=== PATIENT | male | born 1990 | race Caucasian/White ===

== ENCOUNTER 2025-05-30 09:38 | Inpatient (IN) | payer MEDICAID ==
[~2025-05-30] VITALS: Ht 190.5 cm; Wt 143.0 kg
--- NOTE | 2025-05-30 09:56 | ED.PDOC ---
GI ASSESSMENT HPI Comments 34 y/o M, presents to the ED for CC of abdominal pain. Patient states he has been experiencing diffuse abdominal pain with associated nausea, vomiting, and diarrhea sudden onset, today (05/30/25). Patient reports, to have had [id number] of emesis since symptoms began. Patient endorses, taking Pepto Bismol with no relief of symptoms. Patient denies constipation, melena, fever, chills, or body- aches. No other symptoms or modifying factors are present at this time. Chief Complaint: Abdominal Pain Time Seen by MD: 09:50 Reviewed Notes: Nurses Notes, Medications, Allergies Allergies: Coded Allergies: NO KNOWN ALLERGIES (Unverified , 05/30/25) Information Source: Patient Mode of Arrival: Ambulatory Timing: Hours, Days Duration: Since onset Prehospital treatment: None Vomitus: Watery Stool: Watery Recent: None Recent Hx of: None Pain Location: Diffuse Modifying Factors: Nothing Associated sign and symptoms: Nausea, Vomiting, Diarrhea, Abdominal Pain Past Medical History PAST MEDICAL HISTORY: Denies Surgical History: Denies all surgeries Family History Family History: Unknown Social History Smoker: Non-Smoker Alcohol: Denies ETOH Use Drugs: Denies Drug Use Lives In: Home Constitutional: denies: chills, diaphoresis, fatigue, fever, malaise, sweats, weakness, others EENTM: denies: blurred vision, double vision, ear bleeding, ear discharge, ear drainage, ear pain, ear ringing, eye pain, eye redness, hearing loss, mouth pain, mouth swelling, nasal discharge, nose bleeding, nose congestion, nose pain, photophobia, tearing, throat pain, throat swelling, voice changes, others Respiratory: denies: cough, hemoptysis, orthopnea, SOB at rest, shortness of breath, SOB with excertion, stridor, wheezing, others Cardiovascular: denies: chest pain, dizzy spells, diaphoresis, Dyspnea on exertion, edema, irregular heart beat, left arm pain, lightheadedness, palpitations, PND, syncope, others Gastrointestinal: reports: abdominal pain, diarrhea, nausea, vomiting; denies: abdomen distended, blood streaked bowels, constipated, dysphagia, difficulty swallowing, hematemesis, melena, poor appetite, poor fluid intake, rectal bleeding, rectal pain, others Genitourinary: denies: burning, dysuria, flank pain, frequency, hematuria, incontinence, penile discharge, penile sore, pain, testicle pain, testicle swelling, urgency, others Neurological: denies: dizziness, fainting, headache, left sided numbness, left sided weakness, numbness, paresthesia, pre-existing deficit, right sided numbness, right sided weakness, seizure, speech problems, tingling, tremors, weakness, others Musculoskeletal: denies: back pain, gout, joint pain, joint swelling, muscle pain, muscle stiffness, neck pain, others Integumetry: denies: bruises, change in color, change in hair/nails, dryness, laceration, lesions, lumps, rash, wounds, others Allergic/Immunocompromised: denies: Difficulty Healing, Frequent Infections, Hives, Itching, others Hematologic/Lymphatic: denies: anemia, blood clots, easy bleeding, easy bruising, swollen glands, others Endocrine: denies: excessive hunger, excessive sweating, excessive thirst, excessive urination, flushing, intolerance to cold, intolerance to heat, unexplained weight gain, unexplained weight loss, others Psychiatric: denies: anxiety, bipolar disorder, depression, hopeless, panic disorder, schizophrenia, sleepless, suicidal, others All Other Systems: Reviewed and Negative Physical Exam General Appearance: Moderate Distress, Obese HEENT: Normal ENT Inspection, Pharynx Normal, TMs Normal Neck: Full Range of Motion, Non-Tender, Normal, Normal Inspection Respiratory: Chest Non-Tender, Lungs Clear, No Accessory Muscle Use, No Respiratory Distress, Normal Breath Sounds Cardiovascular: No Edema, No JVD, No Murmur, No Gallop, Normal Peripheral Pulses, Regular Rate/Rhythm Breast Exam: Deferred Gastrointestinal: No Organomegaly, Non Tender, No Pulsatile Mass, Normal Bowel Sounds, Soft Genitalia: Deferred Pelvic: Deferred Rectal: Deferred Extremities: No calf tenderness, Normal capillary refill, Normal inspection, Normal range of motion, Non-tender, No pedal edema Musculoskeletal : Apperance: Normal Neurologic: Alert, floor clerk II-XII nml as Tested, No Motor Deficits, Normal Affect, Normal Mood, No Sensory Deficits Cerebellar Function: Normal Reflexes: Normal Skin: Dry, Normal Color, Warm Peripheral Pulses: 3+ Radial (R), 3+ Radial (L) Lymphatic: No Adenopathy Was a procedure done? Was a procedure done?: No GI differential Dx Differential Diagnosis: Diverticular disease, Gastritis/PUD, Gastroenteritis, Inflammatory BD, Electrolyte Imbalance, Food Poisoning, Bacterial, Viral X-Ray, Labs, Meds, VS Vital Signs Date Time Temp Pulse Resp B/P (MAP) Pulse Ox O2 Delivery O2 Flow Rate FiO2 05/30/25 11:52 73 17 133/77 05/30/25 11:34 97.9 57 16 146/85 (105) 99 97.9 05/30/25 11:34 57 16 99 Room Air* 0 21 05/30/25 11:22 57 16 146/85 05/30/25 09:39 97.0 56 20 140/82 100 97.0 Lab Test 05/30/25 10:15 Range/Units White Blood Count 13.8 H 4.4-10.8 10^3/uL Red Blood Count 5.44 4.5-5.90 10^6/uL Hemoglobin 16.2 13.5-17.5 g/dL Hematocrit 47.6 41.0-53.0 % Mean Corpuscular Volume 87.4 80.0-100.0 fL Mean Corpuscular Hemoglobin 29.8 28.0-32.0 pg Mean Corpuscular Hemoglobin Concent 34.0 32.0-36.0 g/dL Red Cell Distribution Width 13.5 11.8-14.3 % Platelet Count 180 140-450 10^3/uL Mean Platelet Volume 8.4 6.9-10.8 fL Neutrophils (%) (Auto) 90.3 H 37.0-80.0 % Lymphocytes (%) (Auto) 8.0 L 10.0-50.0 % Monocytes (%) (Auto) 1.6 0.0-12.0 % Eosinophils (%) (Auto) 0.0 0.0-7.0 % Basophils (%) (Auto) 0.1 0.0-2.0 % Neutrophils # (Auto) 12.5 H 1.6-8.6 10 ^3/uL Lymphocytes # (Auto) 1.1 0.4-5.4 10 ^3/uL Monocytes # (Auto) 0.2 0-1.3 10 ^3/uL Eosinophils # (Auto) 0 0-0.8 10 ^3/uL Basophils # (Auto) 0 0-0.2 10 ^3/uL Nucleated Red Blood Cells 0.2 % Sodium Level 142 136-145 mmol/L Potassium Level 3.7 3.5-5.1 mmol/L Chloride Level 105 98-107 mmol/L Carbon Dioxide Level 26 20-31 mmol/L Anion Gap 11 5-15 Blood Urea Nitrogen 14 9-23 mg/dL Creatinine 0.87 0.700-1.30 mg/dL Glomerular Filtration Rate Calc 115 >90 mL/min BUN/Creatinine Ratio 16.1 10.0-20.0 Serum Glucose 126 H 74-106 mg/dL Calcium Level 9.8 8.7-10.4 mg/dL Total Bilirubin 0.6 0.2-1.0 mg/dL Aspartate Amino Transferase (AST) 21 13-40 U/L Alanine Aminotransferase (ALT) 27 7-40 U/L Alkaline Phosphatase 86 46-116 U/L Total Protein 7.8 5.7-8.2 g/dL Albumin 4.8 3.2-4.8 g/dL Lipase 30 12-53 U/L Current Medications Medications (Trade) Dose Ordered Sig/Davidson Route Start Time Stop Time Status Last Admin Ondansetron HCl (Zofran) 4 mg ONCE ONCE IV 05/30/25 10:15 05/30/25 10:16 DC 05/30/25 11:20 Hydromorphone HCl (Dilaudid Injection) 1 mg ONCE ONCE IV 05/30/25 10:15 05/30/25 10:16 DC 05/30/25 11:22 Sodium Chloride 1,000 ml @ 1,000 mls/hr Q1H ONCE IVB 05/30/25 10:15 05/30/25 11:14 DC 05/30/25 11:21 [place] [address] Ph: [phone] DIAGNOSTIC IMAGING Diagnostic Imaging Report : [id number] Signed PATIENT: BIANCA TORRESCCT: [id number] UNIT: [id number] : 1990 LOC: ER ROOM / BED: / AGE / SEX: 34 / M ADM STATUS: REG ER SERVICE 1010 ORDERING PHYSICIAN: JOEY WRIGHT MD PROCEDURE(s): ABPL - CT AB PEL WO CON-NO ORAL OR IV REASON: colitis ORDER NUMBER(s): [id number], ACCESSION NUMBER(s): [id number] CLINICAL HISTORY: colitis TECHNIQUE: CT of the abdomen and pelvis was performed without IV contrast. This exam was performed according to our departmental dose optimization program. Up- to-date CT equipment and radiation dose reduction techniques are utilized as appropriate. CTDI 26 DLP 1725 COMPARISON: None FINDINGS: Abdomen/Pelvis: The spleen, pancreas, adrenal glands, kidney, liver, bladder, and prostate gland are grossly unremarkable. There is a punctate gallbladder fundal stone versus wall calcification. The abdominal aorta is normal in course and caliber. There are no significant atherosclerotic calcifications. There is no free intraperitoneal air or fluid. There is no enlarged abdominal pelvic lymph node. There is no bowel wall thickening or dilatation. The appendix is not seen. There is no focal inflammatory process in its expected location. Other: The imaged lower thorax is unremarkable. No acute osseous abnormality is evident. Impression: No acute noncontrast CT abnormality of the abdomen or pelvis. Punctate gallbladder fundal stone versus wall calcification. ATED BY: RUPERT DALE MD DICTATED DATE/TIME: 05/30/25 105 SIGNED BY: RUPERT DALE MD SIGNED DATE/TIME: 05/30/25 1057 CC: Patient alert. Came in because of abdominal pain. Vitals stable. Answering questions. Possible gallbladder disease. CT scan of the abdomen does show thickening of the gallbladder. Possible cholecystitis. Nuclear scan. WBC elevated. Explained to the patient. Continue monitoring. Time of 1ST Reevaluation: 10:20 Reevaluation 1ST: Unchanged Patient Education/Counseling: Diagnosis, Treatment Family Education/Counseling: Diagnosis, Treatment SEPSIS Sepsis Screen Date sepsis recognized/suspect: May 30, 2025 Time Sepsis recognized/suspect: 0941 Recent Procedure: No On Antibiotic Therapy: No Respiratory Rate >20: No Heart Rate >90: No Temp<36 C (96.8 F) or >38.3 C: No SBP <90 or MAP <65 mmHG: No New Acute Mental Status Change: No Is the patient on CPAP, BIPAP,: No Physician Orders Ct Ab Pel Wo Con-No Oral Or Iv (05/30/25 10:10) Vital Signs Date Time Temp Pulse Resp B/P (MAP) Pulse Ox O2 Delivery O2 Flow Rate FiO2 05/30/25 11:52 73 17 133/77 05/30/25 11:34 97.9 57 16 146/85 (105) 99 97.9 05/30/25 11:34 57 16 99 Room Air* 0 21 05/30/25 11:22 57 16 146/85 05/30/25 09:39 97.0 56 20 140/82 100 97.0 Laboratory Tests Test 05/30/25 10:15 White Blood Count 13.8 10^3/uL (4.4-10.8) H Medications Medications Dose Ordered Sig/Davidson Route Start Time Stop Time Status Last Admin Dose Admin Hydromorphone HCl 1 mg ONCE ONCE IV 05/30/25 10:15 05/30/25 10:16 DC 05/30/25 11:22 Ondansetron HCl 4 mg ONCE ONCE IV 05/30/25 10:15 05/30/25 10:16 DC 05/30/25 11:20 Sodium Chloride 1,000 ml @ 1,000 mls/hr Q1H ONCE IVB 05/30/25 10:15 05/30/25 11:14 DC 05/30/25 11:21 Departure 1 Departure Time of Disposition: 15:59 Impression: Primary Impression: Acute abdominal pain Additional Impression: Gallbladder disease Disposition: ADMITTED INPATIENT Admit to: Med Surg Condition: Guarded Critical Care Note Critical Care Time?: No Stability Stability form required: No Heart Score Heart Score: Heart Score Response (Comments) Value History N/A 0 EKG N/A 0 Age N/A 0 Risk Factors N/A 0 Troponin N/A 0 Total 0 I personally scribed for JOEY WRIGHT MD ([email or web address]) on 05/30/25 at 09:56. Electronically submitted by Amarilys Alvarez ([email or web address]). I personally scribed for JOEY WRIGHT MD ([email or web address]) on 05/30/25 at 09:58. Electronically submitted by Amarilys Alvarez ([email or web address]). I personally scribed for JOEY WRIGHT MD ([email or web address]) on 05/30/25 at 10:09. Electronically submitted by Amarilys Alvarez ([employer]). I personally scribed for JOEY WRIGHT MD ([email or web address]) on 05/30/25 at 12:25. Electronically submitted by Darrin Naranjo ([email or web address]). JOEY WRIGHT MD May 30, 2025 09:56
[2025-05-30 10:27] LABS: Hematocrit 47.6 % (41.0-53.0); Hemoglobin 16.2 g/dL (13.5-17.5); Mean Corpuscular Hemoglobin 29.8 pg (28.0-32.0); Mean Corpuscular Volume 87.4 fL (80.0-100.0); Nucleated Red Blood Cells % 0.2 %
[2025-05-30 10:47] LABS: Alanine Aminotransferase 27 U/L (7-40); Albumin 4.8 g/dL (3.2-4.8); Alkaline Phosphatase 86 U/L (46-116); Anion Gap 11 (5-15); BUN/Creatinine Ratio 16.1 (10.0-20.0); Blood Urea Nitrogen 14 mg/dL (9-23); Calcium 9.8 mg/dL (8.7-10.4); Carbon Dioxide 26 mmol/L (20-31); Chloride 105 mmol/L (98-107); Potassium 3.7 mmol/L (3.5-5.1); Sodium 142 mmol/L (136-145); Total Protein 7.8 g/dL (5.7-8.2)
[2025-05-30 10:48] LABS: Bilirubin, Total 0.6 mg/dL (0.2-1.0); Glucose 126 mg/dL (74-106)
--- NOTE | 2025-05-30 11:00 | DVH ---
CLINICAL HISTORY: colitis TECHNIQUE: CT of the abdomen and pelvis was performed without IV contrast. This exam was performed ac cording to our departmental dose optimization program. Up-to-date CT equipment and radiation dose red uction techniques are utilized as appropriate. CTDI 26 DLP 1725 COMPARISON: None FINDINGS: Abdomen/Pelvis: The spleen, pancreas, adrenal glands, kidney, liver, bladder, and prostate gland are grossly unremark able. There is a punctate gallbladder fundal stone versus wall calcification. The abdominal aorta is normal in course and caliber. There are no significant atherosclerotic calcifi cations. There is no free intraperitoneal air or fluid. There is no enlarged abdominal pelvic lymph node. There is no bowel wall thickening or dilatation. The appendix is not seen. There is no focal inflamma tory process in its expected location. Other: The imaged lower thorax is unremarkable. No acute osseous abnormality is evident. Impression: No acute noncontrast CT abnormality of the abdomen or pelvis. Punctate gallbladder fundal stone versus wall calcification.
[2025-05-30 11:01] LABS: Lipase 30 U/L (12-53)
[2025-05-30] MEDS: ONDANSETRON HCL 4 MG/2 ML VIAL IV ONE (11:20)
[2025-05-30] MEDS: SODIUM CHLORIDE 0.9% 1,000 ML IVB ONE (11:21)
[2025-05-30] MEDS: HYDROmorphone HCL 2 MG/ML VL/or syr IV ONE (11:22)
[2025-05-30 11:34] VITALS: PULSE 57; RESP 16; O2SAT 99
[2025-05-30 16:44] VITALS: PULSE 62; RESP 18; O2SAT 98
[2025-05-30] MEDS ORDERED: KETOROLAC TROMETH 30 MG/ML 1ML VIAL IV PRN (17:30)
[2025-05-30] MEDS ORDERED: ONDANSETRON HCL 4 MG/2 ML VIAL IV PRN (17:30)
[2025-05-30] MEDS: PANTOPRAZOLE 40 MG/10 ML VIAL INJ IV ONE (17:30)
[2025-05-30] MEDS ORDERED: HYDROcodone-ACET 5/325MG TAB PO PRN (17:30)
[2025-05-30] MEDS ORDERED: ACETAMINOPHEN 325 MG TAB PO PRN (17:30)
--- NOTE | 2025-05-30 18:10 | DVH ---
Technique: Real-time ultrasound imaging of the abdomen was performed with grayscale and color Doppler . Indication: r/o cholecystitis Comparison: None Findings: Liver measures 19.5 cm. It is increased in echogenicity and echotexture without focal mass. Portal v ein is normal in caliber and demonstrates normal hepatopetal flow. Gallbladder demonstrates cholelithiasis and sludge. There is no pericholecystic fluid. The wall thick ness is 6 mm. The common bile duct measures 6 mm. No intrahepatic biliary ductal dilatation. The pancreas is obscured. Impression: Cholelithiasis and sludge. Thickening of the gallbladder wall to 6 mm which can be seen with cholecystitis. Recommend HIDA scan to further evaluate. Echogenic liver which can be seen with hepatic steatosis, cirrhosis.
--- NOTE | 2025-05-30 18:13 | DVHHP2 ---
History of Present Illness Reason for Visit: Abdominal pain History of Present Illness 33-year-old male presents for evaluation of abdominal pain. Patient endorses a one day history of sharp epigastric abdominal pain that radiates to his right upper quadrant. He associates nausea, vomiting and diarrhea. Denies fever or chills. No cardiac or respiratory complaints. Past Medical History Denies Past Surgical History Denies Family History Noncontributory Smoke: No ALCOHOL: none Drugs: None Lives: with Family Review of Systems Review of Systems Review of systems are currently negative otherwise addressed in HPI. Allergies: Coded Allergies: NO KNOWN ALLERGIES (Unverified , 05/30/25) Medications Current Medications Medications Dose Ordered Sig/Davidson Route Start Time Stop Time Status Last Admin Dose Admin Ceftriaxone Sodium 50 ml @ 100 mls/hr DAILY@09 IV 05/31/25 09:00 UNV Pantoprazole Sodium 40 mg DAILY IV 05/31/25 10:00 UNV Ketorolac Tromethamine 15 mg Q6HPRN PRN IV 05/30/25 17:30 06/04/25 17:29 UNV Acetaminophen/ Hydrocodone Bitart 1 tab Q4HP PRN PO 05/30/25 17:30 UNV Ondansetron HCl 4 mg Q4HP PRN IV 05/30/25 17:30 UNV Acetaminophen 650 mg Q6HP PRN PO 05/30/25 17:30 UNV Exam Vital Signs Vital Signs Date Time Temp Pulse Resp B/P (MAP) Pulse Ox O2 Delivery O2 Flow Rate FiO2 05/30/25 16:44 62 18 98 Room Air* 0 21 05/30/25 16:44 98.2 147/79 (101) 98.2 Exam Gen: 34-year-old male in mild distress Skin: Warm, dry, normal color and texture, no rash. HEENT: Normocephalic atraumatic, mucous membranes moist and pink. Neck: Cervical and supraclavicular nodes normal without enlargement, trachea is midline, thyroid gland is normal without masses. Pulmonary: Clear to auscultation and percussion bilaterally. Cardiac: Regular rate and rhythm. No murmur Abdomen: Soft, epigastric tenderness, nondistended, bowel sounds present all 4 quadrants, no guarding, no rigidity, no organomegaly. Extremities: No cyanosis, clubbing, no edema Neuro: Cranial nerves II through XII grossly intact, normal affect and speech, no focal motor deficits. Labs/Xrays ORDERING PHYSICIAN: JOEY WRIGHT MD PROCEDURE(s): ABPL - CT AB PEL WO CON-NO ORAL OR IV REASON: colitis ORDER NUMBER(s): [id number], ACCESSION NUMBER(s): [id number] CLINICAL HISTORY: colitis TECHNIQUE: CT of the abdomen and pelvis was performed without IV contrast. This exam was performed according to our departmental dose optimization program. Up-to-date CT equipment and radiation dose reduction techniques are utilized as appropriate. CTDI 26 DLP 1725 COMPARISON: None FINDINGS: Abdomen/Pelvis: The spleen, pancreas, adrenal glands, kidney, liver, bladder, and prostate gland are grossly unremarkable. There is a punctate gallbladder fundal stone versus wall calcification. The abdominal aorta is normal in course and caliber. There are no significant atherosclerotic calcifications. There is no free intraperitoneal air or fluid. There is no enlarged abdominal pelvic lymph node. There is no bowel wall thickening or dilatation. The appendix is not seen. There is no focal inflammatory process in its expected location. Other: The imaged lower thorax is unremarkable. No acute osseous abnormality is evident. Impression: No acute noncontrast CT abnormality of the abdomen or pelvis. Punctate gallbladder fundal stone versus wall calcification. Labs Test 05/30/25 10:15 Range/Units White Blood Count 13.8 H 4.4-10.8 10^3/uL Red Blood Count 5.44 4.5-5.90 10^6/uL Hemoglobin 16.2 13.5-17.5 g/dL Hematocrit 47.6 41.0-53.0 % Mean Corpuscular Volume 87.4 80.0-100.0 fL Mean Corpuscular Hemoglobin 29.8 28.0-32.0 pg Mean Corpuscular Hemoglobin Concent 34.0 32.0-36.0 g/dL Red Cell Distribution Width 13.5 11.8-14.3 % Platelet Count 180 140-450 10^3/uL Mean Platelet Volume 8.4 6.9-10.8 fL Neutrophils (%) (Auto) 90.3 H 37.0-80.0 % Lymphocytes (%) (Auto) 8.0 L 10.0-50.0 % Monocytes (%) (Auto) 1.6 0.0-12.0 % Eosinophils (%) (Auto) 0.0 0.0-7.0 % Basophils (%) (Auto) 0.1 0.0-2.0 % Neutrophils # (Auto) 12.5 H 1.6-8.6 10 ^3/uL Lymphocytes # (Auto) 1.1 0.4-5.4 10 ^3/uL Monocytes # (Auto) 0.2 0-1.3 10 ^3/uL Eosinophils # (Auto) 0 0-0.8 10 ^3/uL Basophils # (Auto) 0 0-0.2 10 ^3/uL Nucleated Red Blood Cells 0.2 % Sodium Level 142 136-145 mmol/L Potassium Level 3.7 3.5-5.1 mmol/L Chloride Level 105 98-107 mmol/L Carbon Dioxide Level 26 20-31 mmol/L Anion Gap 11 5-15 Blood Urea Nitrogen 14 9-23 mg/dL Creatinine 0.87 0.700-1.30 mg/dL Glomerular Filtration Rate Calc 115 >90 mL/min BUN/Creatinine Ratio 16.1 10.0-20.0 Serum Glucose 126 H 74-106 mg/dL Calcium Level 9.8 8.7-10.4 mg/dL Total Bilirubin 0.6 0.2-1.0 mg/dL Aspartate Amino Transferase (AST) 21 13-40 U/L Alanine Aminotransferase (ALT) 27 7-40 U/L Alkaline Phosphatase 86 46-116 U/L Total Protein 7.8 5.7-8.2 g/dL Albumin 4.8 3.2-4.8 g/dL Lipase 30 12-53 U/L SEPSIS Sepsis Screen Date sepsis recognized/suspect: May 30, 2025 Time Sepsis recognized/suspect: 0941 Recent Procedure: No On Antibiotic Therapy: No Respiratory Rate >20: No Heart Rate >90: No Temp<36 C (96.8 F) or >38.3 C: No SBP <90 or MAP <65 mmHG: No New Acute Mental Status Change: No Is the patient on CPAP, BIPAP,: No Physician Orders Ct Ab Pel Wo Con-No Oral Or Iv (05/30/25 10:10) Gallbladder (05/30/25 17:24) Ceftriaxone 1gm/50ml (Rocephin) (05/31/25 09:00) Pantoprazole (Protonix) (05/31/25 10:00) Pantoprazole (Protonix) (05/30/25 17:30) Ketorolac Injection (Toradol Injection) (05/30/25 17:30) Admit (05/30/25 17:24) Hydrocodone-Acet 5/325mg Tab ([place] 5/32 (05/30/25 17:30) Ondansetron Hcl (Zofran) (05/30/25 17:30) Complete Blood Count (05/31/25 04:00) Comprehensive Metabolic Panel (05/31/25 04:00) Condition: Stable (05/30/25 17:24) Acetaminophen Tablet (Tylenol Tablet) (05/30/25 17:30) Clear Liq Diet (05/30/25 Dinner) Bedrest With Bathroom Privileg (05/30/25 17:24) Vital Signs Date Time Temp Pulse Resp B/P (MAP) Pulse Ox O2 Delivery O2 Flow Rate FiO2 05/30/25 16:44 62 18 98 Room Air* 0 21 05/30/25 16:44 98.2 62 18 147/79 (101) 98 98.2 05/30/25 11:52 73 17 133/77 05/30/25 11:34 97.9 57 16 146/85 (105) 99 97.9 05/30/25 11:34 57 16 99 Room Air* 0 21 05/30/25 11:22 57 16 146/85 Laboratory Tests Test 05/30/25 10:15 White Blood Count 13.8 10^3/uL (4.4-10.8) H Medications Medications Dose Ordered Sig/Davidson Route Start Time Stop Time Status Last Admin Dose Admin Ceftriaxone Sodium 50 ml @ 100 mls/hr ONCE ONCE IV 05/30/25 16:15 05/30/25 16:44 DC 05/30/25 16:32 100 MLS/HR Hydromorphone HCl 1 mg ONCE ONCE IV 05/30/25 10:15 05/30/25 10:16 DC 05/30/25 11:22 1 MG Metronidazole 100 ml @ 100 mls/hr ONCE ONCE IV 05/30/25 16:15 05/30/25 17:14 DC 05/30/25 16:32 100 MLS/HR Ondansetron HCl 4 mg ONCE ONCE IV 05/30/25 10:15 05/30/25 10:16 DC 05/30/25 11:20 4 MG Sodium Chloride 1,000 ml @ 1,000 mls/hr Q1H ONCE IVB 05/30/25 10:15 05/30/25 11:14 DC 05/30/25 11:21 1,000 MLS/HR Assessment/Plan Assessment/Plan Assessment Acute abdominal pain Morbid obesity Plan Admit the patient to [facility] to the hospitalist Clear liquid diet Gallbladder ultrasound pending Rocephin Pain management Continue treatment per orders. Plan discussed with: Patient My Orders Orders - VIC HILARIO Procedure Category Date Status Time Gallbladder US 05/30/25 Taken 17:24 Ceftriaxone 1gm/50ml PHA 05/31/25 Logged (Rocephin) 09:00 Pantoprazole PHA 05/31/25 Logged (Protonix) 10:00 Pantoprazole PHA 05/30/25 Logged (Protonix) 17:30 Ketorolac Injection PHA 05/30/25 Logged (Toradol Injection) 17:30 Admit ADMIT 05/30/25 Transmitted 17:24 Hydrocodone-Acet PHA 05/30/25 Logged 5/325mg Tab (Gran[place] Canon 17:30 Ondansetron Hcl PHA 05/30/25 Logged (Zofran) 17:30 Complete Blood Count LAB 05/31/25 Verified 04:00 Comprehensive LAB 05/31/25 Verified Metabolic Panel 04:00 Condition: Stable MARGARET 05/30/25 In Process 17:24 Acetaminophen Tablet PHA 05/30/25 Logged (Tylenol Tablet) 17:30 Clear Liq Diet DIET 05/30/25 Transmitted Dinner Bedrest With Bathroom MARGARET 05/30/25 In Process Privileg 17:24 Date of Service: May 30, 2025 Billing Provider: VIC HILARIO Common Visit Codes: [id number] INP/OBS CARE (MOD) VIC HILARIO May 30, 2025 18:13
[2025-05-30 21:00] VITALS: BP 139/73; PULSE 63; RESP 20; TEMP 98; O2SAT 100
[2025-05-30 23:21] VITALS: BP 151/93; PULSE 70; RESP 18; TEMP 98.1; O2SAT 97
[2025-05-31] VITALS (7 sets, daily range): BP systolic 138–156; BP diastolic 86–97; PULSE 58–75; RESP 16–19; TEMP 97.8–99.1; O2SAT 97–100
[2025-05-31 06:58] LABS: Hematocrit 42.6 % (41.0-53.0); Hemoglobin 14.9 g/dL (13.5-17.5); Mean Corpuscular Hemoglobin 30.1 pg (28.0-32.0); Mean Corpuscular Volume 86.2 fL (80.0-100.0); Nucleated Red Blood Cells % 0.1 %
[2025-05-31 07:11] LABS: Alanine Aminotransferase 20 U/L (7-40); Alkaline Phosphatase 70 U/L (46-116); Anion Gap 10 (5-15); BUN/Creatinine Ratio 12.9 (10.0-20.0); Blood Urea Nitrogen 9 mg/dL (9-23); Calcium 9.5 mg/dL (8.7-10.4); Carbon Dioxide 27 mmol/L (20-31); Chloride 106 mmol/L (98-107); Glucose 95 mg/dL (74-106); Potassium 3.8 mmol/L (3.5-5.1); Sodium 143 mmol/L (136-145); Total Protein 6.9 g/dL (5.7-8.2)
[2025-05-31 07:12] LABS: Albumin 4.1 g/dL (3.2-4.8); Bilirubin, Total 0.8 mg/dL (0.2-1.0)
[2025-05-31] MEDS: PANTOPRAZOLE 40 MG/10 ML VIAL INJ IV SCH (09:36)
[2025-05-31 10:24] LABS: Hepatitis C Antibody Negative (Negative)
[2025-05-31 10:29] LABS: Hepatitis B Surface Antigen Negative (Negative)
--- NOTE | 2025-05-31 12:16 | DVHPN2 ---
Subjective The patient is seen and examined at bedside. Complain of abdominal pain Reviewed: Care Plan, H&P, Labs, Medications, Previous Orders, Radiology Changes from previous H/P or p: No Changes Objective Vitals Vital Signs Date Time Temp Pulse Resp B/P (MAP) Pulse Ox O2 Delivery O2 Flow Rate FiO2 05/31/25 09:00 97.8 63 16 145/91 (109) 97 97.8 05/31/25 08:00 Room Air* 0 21 Intake/Output Intake and Output 05/31/25 07:00 Intake Total 1800 ml Balance 1800 ml Intake Oral 800 ml IV Total 1000 ml # Voids 2 General Appearance: Alert, Oriented X3, Cooperative, No acute distress HEENT: Atraumatic, PERRLA, EOMI, Mucous membr. moist/pink Neck: Supple Lungs: Clear to auscultation, Normal air movement Cardiovascular: Regular rate, Normal S1, Normal S2, No murmurs, Gallops, Rubs Abdomen: Normal bowel sounds, Soft, No tenderness Neuro: Cranial nerves 3-12 NL Psych/Mental Status: Mental status NL Medications Current Medications Medications Dose Ordered Sig/Davidson Route Start Time Stop Time Status Last Admin Dose Admin Ceftriaxone Sodium 50 ml @ 100 mls/hr DAILY@09 IV 05/31/25 09:00 05/31/25 09:22 100 MLS/HR Pantoprazole Sodium 40 mg DAILY IV 05/31/25 10:00 05/31/25 09:36 40 MG Ketorolac Tromethamine 15 mg Q6HPRN PRN IV 05/30/25 17:30 06/04/25 17:29 Acetaminophen/ Hydrocodone Bitart 1 tab Q4HP PRN PO 05/30/25 17:30 Ondansetron HCl 4 mg Q4HP PRN IV 05/30/25 17:30 Acetaminophen 650 mg Q6HP PRN PO 05/30/25 17:30 Laboratory Results Laboratory Tests 05/31/25 05:10 Chemistry Test 05/31/25 05:10 Albumin 4.1 g/dL (3.2-4.8) Calcium Level 9.5 mg/dL (8.7-10.4) Total Protein 6.9 g/dL (5.7-8.2) LFT Test 05/31/25 05:10 Alanine Aminotransferase (ALT) 20 U/L (7-40) Alkaline Phosphatase 70 U/L (46-116) Aspartate Amino Transferase (AST) 13 U/L (13-40) Total Bilirubin 0.8 mg/dL (0.2-1.0) Labs and/or images reviewed: Labs reviewed by me Assessment/Plan Assessment/Plan Acute abdominal pain Morbid obesity Possible acute cholecystitis per ultrasound studying Plan Continuing current management. Continuing with IV pain medication. I will order HIDA scan. Surgery consulted Discussed with and patient at bedside. This medical document was created using an electronic medical record system with [employer] direct computerized dictation system. Although this document has been carefully reviewed, there may still be some phonetic and typographical errors. These areas are purely typographical due to imperfections of the software programs, and do not reflect any compromise in the patient's medical care. Plan discussed with: Patient Date of Service: May 31, 2025 Billing Provider: WARREN RAMIREZ MD Common Visit Codes: [id number] INP/OBS CARE(HIGH) WARREN RAMIREZ MD May 31, 2025 12:16
--- NOTE | 2025-05-31 19:07 | DVH ---
NUCLEAR MEDICINE HEPATOBILIARY SCAN REASON FOR EXAM: cholecystitis. Abdominal pain. RADIOPHARMACEUTICAL: 4.5 mCi Tc-99m Choletec, IV AUTHORIZED USER: Ben Armas M.D. TECHNIQUE: Following the intravenous administration of 4.5 mCi Tc-99m Choletec, sequential images w ere obtained every 60 seconds over the abdomen for sixty minutes. Anterior and left lateral images of the abdomen were obtained at 3 hours. FINDINGS: There is prompt, uniform accumulation of tracer by the liver. There is normal filling of t he intrahepatic ducts and common bile duct. There is normal excretion of tracer into the duodenum. T he gallbladder is not visualized during this exam. IMPRESSION: Nonvisualization of the gallbladder at 3 hours post injection. This would be consistent with a diagno sis of acute cholecystitis.
[2025-06-01] VITALS (7 sets, daily range): BP systolic 127–138; BP diastolic 72–82; PULSE 67–71; RESP 12–19; TEMP 97.9–98.5; O2SAT 96–100
[2025-06-01 05:56] LABS: Anion Gap 9 (5-15); Carbon Dioxide 30 mmol/L (20-31); Chloride 104 mmol/L (98-107); Potassium 3.9 mmol/L (3.5-5.1); Sodium 143 mmol/L (136-145)
[2025-06-01 05:58] LABS: Calcium 9.3 mg/dL (8.7-10.4)
[2025-06-01 05:59] LABS: Hematocrit 43.5 % (41.0-53.0); Hemoglobin 15.0 g/dL (13.5-17.5); Mean Corpuscular Hemoglobin 30.3 pg (28.0-32.0); Mean Corpuscular Volume 87.7 fL (80.0-100.0); Nucleated Red Blood Cells % 0.1 %
[2025-06-01 06:03] LABS: BUN/Creatinine Ratio 10.6 (10.0-20.0); Blood Urea Nitrogen 9 mg/dL (9-23); Glucose 81 mg/dL (74-106)
--- NOTE | 2025-06-01 10:06 | DVHINCON2 ---
Date of service: Jun 01, 2025 Reason for Consultation acute cholecystitis History of Present Illness History Source: Patient HPI 33 year old male presented to the ER with complaint of abdominal pain. Patient states he is experiencing right upper quadrant pain. denies any nausea or vomiting. Chief Complaint of Abdominal/F: Abdominal pain Location of Abdominal Onset: RUQ Past Medical History Cardiac: No pertinent Hx Pulmonary: No pertinent Hx Central Nervous System: No pertinent Hx GI: No pertinent Hx Hemotology/Oncology: No pertinent Hx Hepatobiliary: No pertinent Hx Psychiatric: No pertinent Hx Musculoskeletal: No pertinent Hx Rheumotologic: No pertinent Hx Infectious Disease: No peritnent Hx ENT: No pertinent Hx Renal/: No pertinent Hx Endocrine: No pertinent Hx Past Surgical History: No pertinent Hx Patient Family History: Patient reports no known family medical history. Smoker: No Hx (Negative) Alocohol: None Drugs: Marijuana Lives with: With family Review of Systems Constitutional: No symptom reported Ears, Nose, & Throat: No symptom reported Eyes: No symptom reported Pulmonary/Respiratory: No symptom reported Cardiovascular: No symptom reported Gastrointestinal: Abdominal Pain Genitourinary: No symptom reported Musculoskeletal: No symptom reported Skin: No symptom reported Psychiatric: No symptom reported Endocrine: No symptom reported Hemotologic/Lymphatic: No symptom reported H&P Exam Vital Signs Vital Signs Date Time Temp Pulse Resp B/P (MAP) Pulse Ox O2 Delivery O2 Flow Rate FiO2 06/01/25 09:02 98.0 71 12 127/72 (90) 96 98.0 06/01/25 07:43 Room Air* 0 21 General Appeara: Well developed, Well nourished Head Exam: Normal inspection Neck Exam: Normal inspection Eye Exam: bilateral eye Normal inspection Nasal Exam: Normal inspection Pulmonary/Respiratory: Normal inspection Cardiovascular/Chest: Normal inspection Abdominal Pain Onset Location: RUQ Neuro/Mental St: Alert, Oriented Appearance: Appropriate appearance Labs/Xrays Labs Test 06/01/25 04:37 05/31/25 05:10 05/30/25 10:15 Range/Units White Blood Count 11.3 H 4.4-10.8 10^3/uL Red Blood Count 4.97 4.5-5.90 10^6/uL Hemoglobin 15.0 13.5-17.5 g/dL Hematocrit 43.5 41.0-53.0 % Mean Corpuscular Volume 87.7 80.0-100.0 fL Mean Corpuscular Hemoglobin 30.3 28.0-32.0 pg Mean Corpuscular Hemoglobin Concent 34.5 32.0-36.0 g/dL Red Cell Distribution Width 13.1 11.8-14.3 % Platelet Count 157 140-450 10^3/uL Mean Platelet Volume 8.8 6.9-10.8 fL Neutrophils (%) (Auto) 65.0 37.0-80.0 % Lymphocytes (%) (Auto) 24.9 10.0-50.0 % Monocytes (%) (Auto) 6.6 0.0-12.0 % Eosinophils (%) (Auto) 3.2 0.0-7.0 % Basophils (%) (Auto) 0.3 0.0-2.0 % Neutrophils # (Auto) 7.4 1.6-8.6 10 ^3/uL Lymphocytes # (Auto) 2.8 0.4-5.4 10 ^3/uL Monocytes # (Auto) 0.7 0-1.3 10 ^3/uL Eosinophils # (Auto) 0.4 0-0.8 10 ^3/uL Basophils # (Auto) 0 0-0.2 10 ^3/uL Nucleated Red Blood Cells 0.1 % Sodium Level 143 136-145 mmol/L Potassium Level 3.9 3.5-5.1 mmol/L Chloride Level 104 98-107 mmol/L Carbon Dioxide Level 30 20-31 mmol/L Anion Gap 9 5-15 Blood Urea Nitrogen 9 9-23 mg/dL Creatinine 0.85 0.700-1.30 mg/dL Glomerular Filtration Rate Calc 116 >90 mL/min BUN/Creatinine Ratio 10.6 10.0-20.0 Serum Glucose 81 74-106 mg/dL Calcium Level 9.3 8.7-10.4 mg/dL Total Bilirubin 0.8 0.2-1.0 mg/dL Aspartate Amino Transferase (AST) 13 13-40 U/L Alanine Aminotransferase (ALT) 20 7-40 U/L Alkaline Phosphatase 70 46-116 U/L Total Protein 6.9 5.7-8.2 g/dL Albumin 4.1 3.2-4.8 g/dL Hepatitis B Surface Antigen Negative Negative Hepatitis C Antibody Negative Negative Lipase 30 12-53 U/L Assessment/Plan Problem List: (1) Cholecystitis (2) Gallstones (3) Acute abdominal pain Plan right upper quadrant tender to palpation denies nausea and vomiting ultrasound: gallstones HIDA scan : Nonvisualization of the gallbladder at 3 hours post injection Plan: Laparoscopic possibly open cholecystectomy tomorrow Plan discussed with: Patient, Other (Dr. Nassar) Visit Coding Surgery Date of Service if different f: Jun 01, 2025 Billing Provider: MEENA NASSAR MD Surgery Visit Codes: [id number] - INP CONSULT <80 MIN CHELSEY HERNANDEZ WORK STUDY STUDENT Jun 01, 2025 10:06
[2025-06-01 11:00] LABS: INR 1.05 (0.9-1.15); Partial Thromboplastin Time 28.5 SEC (24.5-34.5); Prothrombin Time 11.1 sec (9.3-11.8)
--- NOTE | 2025-06-01 14:34 | DVHPN2 ---
Subjective The patient is seen and examined at bedside. Complain of abdominal pain Reviewed: Care Plan, H&P, Labs, Medications, Previous Orders, Radiology Changes from previous H/P or p: No Changes Objective Vitals Vital Signs Date Time Temp Pulse Resp B/P (MAP) Pulse Ox O2 Delivery O2 Flow Rate FiO2 06/01/25 13:00 98.2 68 12 134/81 (98) 97 98.2 06/01/25 07:43 Room Air* 0 21 Intake/Output Intake and Output 06/01/25 07:00 Intake Total 2450 ml Balance 2450 ml Intake Oral 2400 ml IV Total 50 ml # Voids 6 # Bowel Movements 1 General Appearance: Alert, Oriented X3, Cooperative, No acute distress HEENT: Atraumatic, PERRLA, EOMI, Mucous membr. moist/pink Neck: Supple Lungs: Clear to auscultation, Normal air movement Cardiovascular: Regular rate, Normal S1, Normal S2, No murmurs, Gallops, Rubs Abdomen: Normal bowel sounds, Soft, No tenderness Neuro: Cranial nerves 3-12 NL Psych/Mental Status: Mental status NL Medications Current Medications Medications Dose Ordered Sig/Davidson Route Start Time Stop Time Status Last Admin Dose Admin Ceftriaxone Sodium 50 ml @ 100 mls/hr DAILY@09 IV 05/31/25 09:00 06/01/25 09:19 100 MLS/HR Pantoprazole Sodium 40 mg DAILY IV 05/31/25 10:00 06/01/25 09:19 40 MG Ketorolac Tromethamine 15 mg Q6HPRN PRN IV 05/30/25 17:30 06/04/25 17:29 Acetaminophen/ Hydrocodone Bitart 1 tab Q4HP PRN PO 05/30/25 17:30 Ondansetron HCl 4 mg Q4HP PRN IV 05/30/25 17:30 Acetaminophen 650 mg Q6HP PRN PO 05/30/25 17:30 Laboratory Results Laboratory Tests 06/01/25 04:37 Chemistry Test 06/01/25 04:37 Calcium Level 9.3 mg/dL (8.7-10.4) Coagulation Test 06/01/25 09:56 Prothrombin Time 11.1 sec (9.3-11.8) Prothrombin Time INR 1.05 (0.9-1.15) Activated Partial Thromboplast Time 28.5 SEC (24.5-34.5) Labs and/or images reviewed: Labs reviewed by me, Image(s) reviewed by me (HIDA scan showed: Nonvisualization of the gallbladder at 3 hours post injection. This would be consistent with a diagnosis of acute cholecystitis.) Assessment/Plan Assessment/Plan Acute abdominal pain Morbid obesity Acute cholecystitis. Plan Continuing current management. Continuing with IV pain medication. HIDA scan showed: Nonvisualization of the gallbladder at 3 hours post injection. This would be consistent with a diagnosis of acute cholecystitis. Surgery input appreciate. Await for cholecystectomy. Discussed with patient at bedside. This medical document was created using an electronic medical record system with [employer] direct computerized dictation system. Although this document has been carefully reviewed, there may still be some phonetic and typographical errors. These areas are purely typographical due to imperfections of the software programs, and do not reflect any compromise in the patient's medical care. Plan discussed with: Patient Date of Service: Jun 01, 2025 Billing Provider: WARREN RAMIREZ MD Common Visit Codes: [id number] INP/OBS CARE(HIGH) WARREN RAMIREZ MD Jun 01, 2025 14:34
[2025-06-02] VITALS (8 sets, daily range): BP systolic 128–151; BP diastolic 66–90; PULSE 72–102; RESP 12–20; TEMP 97.5–98.1; O2SAT 94–99
[2025-06-02 05:47] LABS: Hematocrit 43.7 % (41.0-53.0); Hemoglobin 15.1 g/dL (13.5-17.5); Mean Corpuscular Hemoglobin 30.3 pg (28.0-32.0); Mean Corpuscular Volume 87.6 fL (80.0-100.0); Nucleated Red Blood Cells % 0.1 %
[2025-06-02 05:51] LABS: Chloride 105 mmol/L (98-107); Potassium 3.6 mmol/L (3.5-5.1); Sodium 141 mmol/L (136-145)
[2025-06-02 05:52] LABS: Anion Gap 10 (5-15); Calcium 9.5 mg/dL (8.7-10.4); Carbon Dioxide 26 mmol/L (20-31)
[2025-06-02 05:57] LABS: Glucose 89 mg/dL (74-106)
[2025-06-02 05:58] LABS: BUN/Creatinine Ratio 9.6 (10.0-20.0)
[2025-06-02 06:09] LABS: Blood Urea Nitrogen 8 mg/dL (9-23)
[2025-06-02] MEDS ORDERED: ceFAZolin 2 GM/D5W50ml 50 ML IV ONE (06:53)
[2025-06-02] MEDS ORDERED: KETOROLAC TROMETH 30 MG/ML 1ML VIAL ONE (07:21)
[2025-06-02] MEDS ORDERED: MIDAZOLAM HCL 2MG/2ML 2ml VIAL (1mg/ml) ONE (07:21)
[2025-06-02] MEDS ORDERED: ONDANSETRON HCL 4 MG/2 ML VIAL ONE (07:21)
[2025-06-02] MEDS ORDERED: fentaNYL CITRATE 100 MCG/2 ML VL ONE (07:21)
[2025-06-02] MEDS ORDERED: LIDOCAINE 2% (LOCAL ANESTH.) PF 5ml SDV ONE (07:21)
[2025-06-02] MEDS ORDERED: PROPOFOL 10 MG/ML 20 ML IV ONE (07:21)
[2025-06-02] MEDS ORDERED: KETAMINE 50mg/ML 1ml syringe ONE (07:21)
[2025-06-02] MEDS ORDERED: HYDROmorphone HCL 2 MG/ML VL/or syr ONE (07:21)
[2025-06-02] MEDS ORDERED: GLYCOPYRROLATE 0.2 MG/ML 1ML VIAL ONE (07:21)
[2025-06-02] MEDS ORDERED: SUGAMMADEX 200mg/2ml Vial (100MG/ML) IV ONE (07:59)
[2025-06-02] MEDS ORDERED: ROCURONIUM 10MG/ML 10ML VIAL IV ONE (07:59)
[2025-06-02] MEDS: BUPIVACAINE HCL 0.25% P/F 10 ML VIAL ONE (08:06)
[2025-06-02] MEDS: LIDOCAINE W/ EPINEPHRINE 1% 20ML VIAL ONE (08:07)
[2025-06-02] MEDS: D5W/SOD CHL 0.45%/KCL 20MEQ 1,000 ML IV SCH (08:30)
--- NOTE | 2025-06-02 08:42 | DVHOP ---
DATE OF SURGERY: 06/02/2025 PREOPERATIVE DIAGNOSES: Cholelithiasis, cholecystitis. POSTOPERATIVE DIAGNOSES: Cholelithiasis, cholecystitis, morbid obesity. SURGEON: Jaun Nassar MD EQUINE BREEDER: Nitish Casillas. ANESTHESIA: General endotracheal. ANESTHESIOLOGIST: Dr. Guerra. PROCEDURES: Laparoscopy, laparoscopic cholecystectomy. DESCRIPTION OF PROCEDURE: Under general endotracheal anesthesia, with the patient's skin prepped and draped, a supraumbilical incision was made and Veress needle inserted into the peritoneal cavity by the hanging drop technique in order to establish pneumoperitoneum to 15 mmHg pressure by insufflation with carbon dioxide. With the abdomen fully distended to 15 mmHg pressure, the needle was removed and replaced with a 5 mm trocar port through which a 0-degree viewing laparoscope was inserted. It is of note that the patient's morbid obesity necessitated full extent of instrumentation and port length and it was extremely difficult due to the patient's obesity. Following insertion of the camera, a 5 mm port and 10 mm port were inserted through the right flank at the level of the umbilicus in the anterior axillary line the 5 mm port and the 10-mm port was inserted in the subxiphoid midline skin. Instrumentation was then introduced and laparoscopy was conducted revealing no obvious unexpected pathology on serosal surfaces visualized. The gallbladder was almost entirely intrahepatic under a massively fatty infiltrated liver and acutely inflamed. There was a great deal of difficulty gaining access to the gallbladder due to the patient's obesity and the intrahepatic nature of the gallbladder; however, the gallbladder fundus was placed on tension cephalad with a grasping forceps and much adipose tissue was dissected around the junction with the cystic duct. The cystic duct and cystic artery were then identified, circumferentially dissected, skeletonized, and traced into the hepatocystic triangle so as to minimize the potential for inadvertent injury to the common bile duct. The cystic duct and cystic artery were then divided between metallic clips close to the gallbladder, again avoiding inadvertent injury to the common bile duct to the very best of my ability. Subsequently, the gallbladder was resected from its liver bed. The intrahepatic nature of the gallbladder resulted in denuding of some of the liver parenchyma, which resulted in some bleeding for which reason following removal of the gallbladder from the peritoneal cavity through the 10-mm port site, the right upper quadrant was irrigated. Irrigant was aspirated. Hemostasis was meticulously accomplished and found to be complete. A 10-mm Juan-Pendleton drain was placed underneath the large lobe of the liver on the right, exteriorized the drain through the 5-mm port site on the right flank and securing it with 2-0 nylon suture. Subsequently, instrumentation was withdrawn. Again, hemostasis was found to be complete at the site of the gallbladder resection as well as the port sites. Pneumoperitoneum was evacuated. Fascia defect closed using 0 Vicryl. Incisions closed using Monocryl sutures, Dermabond glue, and Steri-Strips. The patient remained stable throughout the procedure, left the operating room following an accurate needle and sponge counts. No family members were present in the waiting room. MD SALAS White/EDWARD TID: [id number] RECEIPT: [id number]
[2025-06-02] MEDS ORDERED: ONDANSETRON HCL 4 MG/2 ML VIAL IV PRN (08:45)
[2025-06-02] MEDS ORDERED: HYDROmorphone HCL 2 MG/ML VL/or syr IV PRN (08:45)
[2025-06-02] MEDS: ACETAMINOPHEN IV 1000 MG/100ML (10MG/ML) IV ONE (08:50)
[2025-06-02] MEDS ORDERED: ACETAMINOPHEN IV 100 ML IV ONE (08:50)
--- NOTE | 2025-06-02 22:00 | DVHPN2 ---
Subjective The patient is seen and examined at bedside. Status post cholecystectomy. Patient tolerated regular diet. No flatus yet. Reviewed: Care Plan, H&P, Labs, Medications, Previous Orders, Radiology Changes from previous H/P or p: No Changes Objective Vitals Vital Signs Date Time Temp Pulse Resp B/P (MAP) Pulse Ox O2 Delivery O2 Flow Rate FiO2 06/02/25 21:00 97.9 102 20 151/90 (110) 96 97.9 06/02/25 20:00 Room Air* 0 21 Intake/Output Intake and Output 06/02/25 07:00 Intake Total 1370 ml Balance 1370 ml Intake Oral 1320 ml IV Total 50 ml # Voids 7 General Appearance: Alert, Oriented X3, Cooperative, No acute distress HEENT: Atraumatic, PERRLA, EOMI, Mucous membr. moist/pink Neck: Supple Lungs: Clear to auscultation, Normal air movement Cardiovascular: Regular rate, Normal S1, Normal S2, No murmurs, Gallops, Rubs Abdomen: Normal bowel sounds, Soft, No tenderness Neuro: Cranial nerves 3-12 NL Psych/Mental Status: Mental status NL Medications Current Medications Medications Dose Ordered Sig/Davidson Route Start Time Stop Time Status Last Admin Dose Admin Ceftriaxone Sodium 50 ml @ 100 mls/hr DAILY@09 IV 05/31/25 09:00 06/02/25 10:24 100 MLS/HR Pantoprazole Sodium 40 mg DAILY IV 05/31/25 10:00 06/02/25 10:24 40 MG Acetaminophen/ Hydrocodone Bitart 1 tab Q4HP PRN PO 05/30/25 17:30 Ondansetron HCl 4 mg Q4HP PRN IV 05/30/25 17:30 Acetaminophen 650 mg Q6HP PRN PO 05/30/25 17:30 Metronidazole 100 ml @ 100 mls/hr Q8HR IV 06/02/25 14:00 06/02/25 14:00 100 MLS/HR Potassium Chloride/Dextrose/ Sod Cl 1,000 ml @ 100 mls/hr Q10H IV 06/02/25 08:30 06/02/25 18:30 100 MLS/HR Oxycodone HCl 5 mg ONCE PRN PO 06/02/25 08:45 Laboratory Results Laboratory Tests 06/02/25 04:43 Chemistry Test 06/02/25 04:43 Calcium Level 9.5 mg/dL (8.7-10.4) Labs and/or images reviewed: Labs reviewed by me Assessment/Plan Assessment/Plan Acute abdominal pain Morbid obesity Acute cholecystitis. Plan Continuing current management. Continuing with IV pain medication. Continuing IV antibiotic HIDA scan showed: Nonvisualization of the gallbladder at 3 hours post injection. This would be consistent with a diagnosis of acute cholecystitis. Surgery input appreciate. Status post cholecystectomy Discharge planning This medical document was created using an electronic medical record system with [employer] direct computerized dictation system. Although this document has been carefully reviewed, there may still be some phonetic and typographical errors. These areas are purely typographical due to imperfections of the software programs, and do not reflect any compromise in the patient's medical care. Plan discussed with: Patient, Spouse Date of Service: Jun 02, 2025 Billing Provider: WARREN RAMIREZ MD Common Visit Codes: [id number] INP/OBS CARE(HIGH) WARREN RAMIREZ MD Jun 02, 2025 22:00
[2025-06-03] VITALS (7 sets, daily range): BP systolic 132–157; BP diastolic 77–96; PULSE 68–89; RESP 12–20; TEMP 97.1–98.3; O2SAT 95–100
[2025-06-03 07:00] LABS: Hematocrit 42.3 % (41.0-53.0); Hemoglobin 14.8 g/dL (13.5-17.5); Mean Corpuscular Hemoglobin 30.5 pg (28.0-32.0); Mean Corpuscular Volume 87.0 fL (80.0-100.0); Nucleated Red Blood Cells % 0.1 %
[2025-06-03 07:08] LABS: Anion Gap 9 (5-15); Carbon Dioxide 28 mmol/L (20-31); Chloride 106 mmol/L (98-107); Potassium 4.0 mmol/L (3.5-5.1); Sodium 143 mmol/L (136-145)
[2025-06-03 07:09] LABS: Calcium 9.2 mg/dL (8.7-10.4)
[2025-06-03 07:14] LABS: BUN/Creatinine Ratio 10.7 (10.0-20.0); Blood Urea Nitrogen 9 mg/dL (9-23); Glucose 100 mg/dL (74-106)
[2025-06-03 07:16] LABS: Bilirubin, Total 0.8 mg/dL (0.2-1.0)
--- NOTE | 2025-06-03 09:15 | DVHPN2 ---
Subjective Date Seen: Jun 03, 2025 Post op day Post op day: 1 Patient reports: No new complaints, Feels better Nursing reports: No new complaints General: Normal HNT: Normal Cardiovascular: Normal Respiratory: Normal Gastrointestinal: Normal Genitourinary: Normal Musculoskeletal: Normal Neurological: Normal Objective Vitals Vital Sign Date Time Temp Pulse Resp B/P (MAP) Pulse Ox O2 Delivery O2 Flow Rate FiO2 06/03/25 08:05 95 Room Air* 0 21 06/03/25 04:47 97.2 71 16 145/85 (105) 97.2 Total Intake and Output 06/02/25 06/02/25 06/03/25 15:00 23:00 07:00 Intake Total 660 ml 850 ml Output Total 90 ml 297 ml Balance -90 ml 363 ml 850 ml Medications Current Medications Medications Dose Ordered Sig/Davidson Route Start Time Stop Time Status Last Admin Dose Admin Ceftriaxone Sodium 50 ml @ 100 mls/hr DAILY@09 IV 05/31/25 09:00 06/02/25 10:24 100 MLS/HR Pantoprazole Sodium 40 mg DAILY IV 05/31/25 10:00 06/02/25 10:24 40 MG Acetaminophen/ Hydrocodone Bitart 1 tab Q4HP PRN PO 05/30/25 17:30 Ondansetron HCl 4 mg Q4HP PRN IV 05/30/25 17:30 Acetaminophen 650 mg Q6HP PRN PO 05/30/25 17:30 Metronidazole 100 ml @ 100 mls/hr Q8HR IV 06/02/25 14:00 06/03/25 05:15 100 MLS/HR Potassium Chloride/Dextrose/ Sod Cl 1,000 ml @ 100 mls/hr Q10H IV 06/02/25 08:30 06/02/25 22:21 100 MLS/HR Oxycodone HCl 5 mg ONCE PRN PO 06/02/25 08:45 General: Normal, Obese Head/Eyes: Normal ENT: Normal Neck: Normal Lungs: Normal, Normal inspection Cardiovascular: Normal, Regular rate and rhythm Abdominal: Normal, Soft, Normal inspection Musculoskeletal: Normal Extremities: Normal Skin: Normal Labs and Microbiology Laboratory Tests 06/03/25 05:24 Test 06/03/25 05:24 Range/Units Serum Glucose 100 74-106 mg/dL Ass/Plan Labs and/or images reviewed: Labs reviewed by me Assessment/Plan s/p laparoscopic cholecystectomy POD#1 - Reports feeling well status post laparoscopic cholecystectomy with no new complaints. - Minimal serosanguineous fluid output from the Juan-Pendleton drain, noted as approximately 5 cc overnight. - Denies any nausea or vomiting and is tolerating a diet. - Expresses a desire to be discharged home. abdomen soft non distended , appropriately tender wounds clean dry and intact labs and notes reviewed Plan: advance diet as tolerated ok to discharge per surgery point of view in 24 hours ( continue with IV antibiotics ) ok to shower in 48 hours follow up in surgery clinic in 1 week empty JESUS drain daily record output Discussed with Dr. Nassar Plan discussed with patient , Dr. Nassar Visit Coding Surgery Date of Service if different f: Jun 03, 2025 Billing Provider: MEENA NASSAR MD Surgery Visit Codes: [id number] INP/OBS CARE(HIGH) CHELSEY HERNANDEZ NP Jun 03, 2025 09:15
--- NOTE | 2025-06-03 11:08 | DVHPN2 ---
Subjective The patient is seen and examined at bedside. Status post cholecystectomy. Patient tolerated regular diet. Pass flatus and bowel movement. Reviewed: Care Plan, H&P, Labs, Medications, Previous Orders, Radiology Changes from previous H/P or p: No Changes Objective Vitals Vital Signs Date Time Temp Pulse Resp B/P (MAP) Pulse Ox O2 Delivery O2 Flow Rate FiO2 06/03/25 09:00 97.9 77 16 140/79 (99) 97 97.9 06/03/25 08:05 Room Air* 0 21 Intake/Output Intake and Output 06/03/25 07:00 Intake Total 1510 ml Output Total 387 ml Balance 1123 ml Intake Oral 1310 ml IV Total 200 ml Output Drainage Total 387 ml # Voids 5 General Appearance: Alert, Oriented X3, Cooperative, No acute distress HEENT: Atraumatic, PERRLA, EOMI, Mucous membr. moist/pink Neck: Supple Lungs: Clear to auscultation, Normal air movement Cardiovascular: Regular rate, Normal S1, Normal S2, No murmurs, Gallops, Rubs Abdomen: Normal bowel sounds, Soft, No tenderness Neuro: Cranial nerves 3-12 NL Psych/Mental Status: Mental status NL Medications Current Medications Medications Dose Ordered Sig/Davidson Route Start Time Stop Time Status Last Admin Dose Admin Ceftriaxone Sodium 50 ml @ 100 mls/hr DAILY@09 IV 05/31/25 09:00 06/03/25 09:15 100 MLS/HR Pantoprazole Sodium 40 mg DAILY IV 05/31/25 10:00 06/03/25 09:15 40 MG Acetaminophen/ Hydrocodone Bitart 1 tab Q4HP PRN PO 05/30/25 17:30 Ondansetron HCl 4 mg Q4HP PRN IV 05/30/25 17:30 Acetaminophen 650 mg Q6HP PRN PO 05/30/25 17:30 Metronidazole 100 ml @ 100 mls/hr Q8HR IV 06/02/25 14:00 06/03/25 05:15 100 MLS/HR Potassium Chloride/Dextrose/ Sod Cl 1,000 ml @ 100 mls/hr Q10H IV 06/02/25 08:30 06/02/25 22:21 100 MLS/HR Oxycodone HCl 5 mg ONCE PRN PO 06/02/25 08:45 Laboratory Results Laboratory Tests 06/03/25 05:24 Chemistry Test 06/03/25 05:24 Calcium Level 9.2 mg/dL (8.7-10.4) LFT Test 06/03/25 05:24 Total Bilirubin 0.8 mg/dL (0.2-1.0) Microbiology Microbiology Date/Time Source Procedure Growth Status 06/02/25 07:54 Other Gram Stain Pending Resulted 06/02/25 07:54 Other Anaerobic Culture - Preliminary Resulted 06/02/25 07:54 Other Aerobic Culture Pending Resulted Labs and/or images reviewed: Labs reviewed by me Assessment/Plan Assessment/Plan Acute abdominal pain Morbid obesity Acute cholecystitis. Leukocytosis Plan Continuing current management. Continuing with IV pain medication. Continuing IV antibiotic HIDA scan showed: Nonvisualization of the gallbladder at 3 hours post injection. This would be consistent with a diagnosis of acute cholecystitis. Surgery input appreciate. Status post cholecystectomy 06/03: Per surgeon, continue IV antibiotic since patient still have leukocytosis. DC in 24 hours. DW patient. He want to go home today. However, explains to him that he need IV abx for 1 more day Patient verbally understand. This medical document was created using an electronic medical record system with [employer] direct computerized dictation system. Although this document has been carefully reviewed, there may still be some phonetic and typographical errors. These areas are purely typographical due to imperfections of the software programs, and do not reflect any compromise in the patient's medical care. Plan discussed with: Patient Date of Service: Jun 03, 2025 Billing Provider: WARREN RAMIREZ MD Common Visit Codes: [id number] INP/OBS CARE(HIGH) WARREN RAMIREZ MD Jun 03, 2025 11:08
[2025-06-04 01:00] VITALS: BP 137/80; PULSE 67; RESP 17; TEMP 97.9; O2SAT 98
[2025-06-04 05:00] VITALS: BP 148/88; PULSE 71; RESP 17; TEMP 97.6; O2SAT 98
[2025-06-04 06:47] LABS: Hematocrit 39.6 % (41.0-53.0); Hemoglobin 13.7 g/dL (13.5-17.5); Mean Corpuscular Hemoglobin 30.1 pg (28.0-32.0); Mean Corpuscular Volume 86.6 fL (80.0-100.0); Nucleated Red Blood Cells % 0.0 %
[2025-06-04 06:57] LABS: Anion Gap 9 (5-15); Carbon Dioxide 28 mmol/L (20-31); Chloride 106 mmol/L (98-107); Potassium 4.0 mmol/L (3.5-5.1); Sodium 143 mmol/L (136-145)
[2025-06-04 06:58] LABS: Calcium 8.7 mg/dL (8.7-10.4)
[2025-06-04 07:03] LABS: BUN/Creatinine Ratio 8.4 (10.0-20.0); Glucose 84 mg/dL (74-106)
[2025-06-04 07:17] LABS: Blood Urea Nitrogen 7 mg/dL (9-23)
[2025-06-04 08:20] VITALS: RESP 18; O2SAT 97
[2025-06-04 08:38] VITALS: BP 142/93; PULSE 80; RESP 18; TEMP 97.9; O2SAT 97
[2025-06-04] MEDS ORDERED: LEVO500T91 PO (11:39)
[2025-06-04] MEDS ORDERED: HYDR-4902 PO (11:39)
[2025-06-04] MEDS ORDERED: MET500T PO (11:39)
--- NOTE | 2025-06-04 11:42 | DVHDS2 ---
Discharge Summary Date of Admission May 30, 2025 at 17:24 Date of Discharge: Jun 04, 2025 Admitting Diagnosis Acute abdominal pain Morbid obesity Acute cholecystitis. Leukocytosis Labs/Diagnostic Data: Laboratory Results Test 06/04/25 05:33 06/03/25 05:24 06/01/25 09:56 05/31/25 05:10 White Blood Count 7.7 10^3/uL (4.4-10.8) Red Blood Count 4.57 10^6/uL (4.5-5.90) Hemoglobin 13.7 g/dL (13.5-17.5) Hematocrit 39.6 % (41.0-53.0) Mean Corpuscular Volume 86.6 fL (80.0-100.0) Mean Corpuscular Hemoglobin 30.1 pg (28.0-32.0) Mean Corpuscular Hemoglobin Concent 34.7 g/dL (32.0-36.0) Red Cell Distribution Width 13.2 % (11.8-14.3) Platelet Count 160 10^3/uL (140-450) Mean Platelet Volume 8.5 fL (6.9-10.8) Neutrophils (%) (Auto) 65.1 % (37.0-80.0) Lymphocytes (%) (Auto) 23.2 % (10.0-50.0) Monocytes (%) (Auto) 7.1 % (0.0-12.0) Eosinophils (%) (Auto) 4.1 % (0.0-7.0) Basophils (%) (Auto) 0.5 % (0.0-2.0) Neutrophils # (Auto) 5.0 10 ^3/uL (1.6-8.6) Lymphocytes # (Auto) 1.8 10 ^3/uL (0.4-5.4) Monocytes # (Auto) 0.6 10 ^3/uL (0-1.3) Eosinophils # (Auto) 0.3 10 ^3/uL (0-0.8) Basophils # (Auto) 0 10 ^3/uL (0-0.2) Nucleated Red Blood Cells 0.0 % Sodium Level 143 mmol/L (136-145) Potassium Level 4.0 mmol/L (3.5-5.1) Chloride Level 106 mmol/L (98-107) Carbon Dioxide Level 28 mmol/L (20-31) Anion Gap 9 (5-15) Blood Urea Nitrogen 7 mg/dL (9-23) Creatinine 0.83 mg/dL (0.700-1.30) Glomerular Filtration Rate Calc 117 mL/min (>90) BUN/Creatinine Ratio 8.4 (10.0-20.0) Serum Glucose 84 mg/dL (74-106) Calcium Level 8.7 mg/dL (8.7-10.4) Total Bilirubin 0.8 mg/dL (0.2-1.0) Prothrombin Time 11.1 sec (9.3-11.8) Prothrombin Time INR 1.05 (0.9-1.15) Activated Partial Thromboplast Time 28.5 SEC (24.5-34.5) Aspartate Amino Transferase (AST) 13 U/L (13-40) Alanine Aminotransferase (ALT) 20 U/L (7-40) Alkaline Phosphatase 70 U/L (46-116) Total Protein 6.9 g/dL (5.7-8.2) Albumin 4.1 g/dL (3.2-4.8) Hepatitis B Surface Antigen Negative (Negative) Hepatitis C Antibody Negative (Negative) Test 05/30/25 10:15 Lipase 30 U/L (12-53) Other Laboratory Tests 06/04/25 05:33 Brief Hx & Hospital Course: This is a 33 years old male come to emergency department because severe abdominal pain. The patient had one day history of sharp epigastric abdominal pain radiating to right upper quadrant. He has nausea, vomiting twice and then diarrhea. The patient was admitted. CT scan abdomen pelvis showed: No acute noncontrast CT abnormality of the abdomen or pelvis. Punctate gallbladder fundal stone versus wall calcification. The patient subsequently had ultrasound gallbladder which showed:Cholelithiasis and sludge. Thickening of the gallbladder wall to 6 mm which can be seen with cholecystitis. Recommend HIDA scan to further evaluate. Echogenic liver which can be seen with hepatic steatosis, cirrhosis. HIDA scan done which showed: Nonvisualization of the gallbladder at 3 hours post injection. This would be consistent with a diagnosis of acute cholecystitis. The patient was put on IV antibiotic with Rocephin and Flagyl. Surgery was consulted. The patient had cholecystectomy done. The patient doing well after surgery. He passed flatus and bowel movement. The patient had no nausea and vomiting. Abdominal pain is minimal. Patient tolerated regular diet today. I am going to discharge him home. Advised him to follow up with primary care physician 1-2 weeks. Follow up with surgeon in one week for postop follow up. Activity as tolerated. Diet per home diet. Advised the patient do not hold, push, pull any object more than 10 lb for two weeks. Physical exam: HEENT: Normocephalic atraumatic pupils equal react to light and accommodation. Extraocular muscles intact, conjunctiva pink, oropharynx moist, no thrush, no exudate. Lymphatic: No lymphadenopathy Cardiovascular exam: S1, S2 was heard. No murmurs, rubs, gallops Lung: Clear on auscultation bilaterally, no wheeze, rale, rhonchi. GI: Abdominal soft, nondistended, nontenderness, positive bowel sounds. Extremity: No crepitus, cyanosis, edema. Pedal pulses present bilateral. Full range of motion. Skin: Normal turgor, no rash. Psych: Alert, oriented x3. Neurology: No focal deficits, cranial nerve II to XII grossly intact. This medical document was created using an electronic medical record system with [employer] direct computerized dictation system. Although this document has been carefully reviewed, there may still be some phonetic and typographical errors. These areas are purely typographical due to imperfections of the software programs, and do not reflect any compromise in the patient's medical care. Condition at Discharge: Stable Final Diagnosis/Problems List acute cholecystitis Acute abdominal pain Morbid obesity Leukocytosis Discharge Disposition: Home Discharge Instruct/Medications Diet: Regular Activity: No Restrictions, As Tolerated Activity comment: Do not carry any object more than 10 lbs for 2 weeks OK to shower Follow Up/Referral: pcp 1-2 weeks Surgeon per schedule for post op follow up Medications: See med list Scheduled Levofloxacin Hemihydrate (Levaquin 500 Mg), 1 TAB PO DAILY Metronidazole (Metronidazole), 500 MG PO TID Scheduled PRN Hydrocodone-Acetaminophen (Hydrocodone Bitartrate/AC 5-325 mg), 1 TAB PO Q4HP PRN Discharge Statement: "Patient was advised to return to the ER or call 911 if any headaches, dizziness, shortness of breath, chest pain, abdominal pain, bleeding, fevers, or worsening of medical condition. Patient was counseled about treatment plan, medications, possible side effects, patientverbalized understanding. All questions were answered to the best of my ability. This discharge took greater then 30 minutes in planning, reviewing documentation, counseling the patient, and discussing with other team members." ASSESSMENT ASSESSMENT Assessment acute cholecystitis Date of Service: Jun 04, 2025 Billing Provider: WARREN RAMIREZ MD Common Visit Codes: 63968-BRK/OBS DISCH DAY >30min WARREN RAMIREZ MD Jun 04, 2025 11:42
--- NOTE | 2025-06-04 12:14 | DVHPN2 ---
Subjective Date Seen: Jun 04, 2025 Post op day Post op day: 2 Patient reports: No new complaints, Feels better Nursing reports: No new complaints General: Normal HNT: Normal Cardiovascular: Normal Respiratory: Normal Gastrointestinal: Normal Genitourinary: Normal Musculoskeletal: Normal Neurological: Normal Objective Vitals Vital Sign Date Time Temp Pulse Resp B/P (MAP) Pulse Ox O2 Delivery O2 Flow Rate FiO2 06/04/25 08:38 97.9 80 18 142/93 (109) 97 97.9 06/03/25 08:05 Room Air* 0 21 Total Intake and Output 06/03/25 06/03/25 06/04/25 15:00 23:00 07:00 Intake Total 2340 ml 1400 ml Output Total 49 ml Balance 2340 ml 1351 ml Medications Current Medications Medications Dose Ordered Sig/Davidson Route Start Time Stop Time Status Last Admin Dose Admin Ceftriaxone Sodium 50 ml @ 100 mls/hr DAILY@09 IV 05/31/25 09:00 06/04/25 09:12 100 MLS/HR Pantoprazole Sodium 40 mg DAILY IV 05/31/25 10:00 06/04/25 09:12 40 MG Acetaminophen/ Hydrocodone Bitart 1 tab Q4HP PRN PO 05/30/25 17:30 Ondansetron HCl 4 mg Q4HP PRN IV 05/30/25 17:30 Acetaminophen 650 mg Q6HP PRN PO 05/30/25 17:30 Metronidazole 100 ml @ 100 mls/hr Q8HR IV 06/02/25 14:00 06/04/25 05:23 100 MLS/HR Potassium Chloride/Dextrose/ Sod Cl 1,000 ml @ 100 mls/hr Q10H IV 06/02/25 08:30 06/04/25 09:12 100 MLS/HR Oxycodone HCl 5 mg ONCE PRN PO 06/02/25 08:45 General: Normal, Obese Head/Eyes: Normal ENT: Normal Neck: Normal Lungs: Normal, Normal inspection Cardiovascular: Normal, Regular rate and rhythm Abdominal: Normal, Soft, Normal inspection Musculoskeletal: Normal Extremities: Normal Skin: Normal Labs and Microbiology Laboratory Tests 06/04/25 05:33 Test 06/04/25 05:33 Range/Units Serum Glucose 84 74-106 mg/dL Ass/Plan Labs and/or images reviewed: Labs reviewed by me Assessment/Plan s/p laparoscopic cholecystectomy POD#1 - Reports feeling well status post laparoscopic cholecystectomy with no new complaints. - Minimal serosanguineous fluid output from the Juan-Pendleton drain, noted as approximately 5 cc overnight. - Denies any nausea or vomiting and is tolerating a diet. - Expresses a desire to be discharged home. abdomen soft non distended , appropriately tender wounds clean dry and intact labs and notes reviewed Plan: advance diet as tolerated ok to discharge per surgery point of view in 24 hours ( continue with IV antibiotics ) ok to shower in 48 hours follow up in surgery clinic in 1 week empty JESUS drain daily record output Discussed with Dr. Nassar 06/04/25 s/p laparoscopic cholecystectomy POD#2 - Reports feeling well status post laparoscopic cholecystectomy with no new complaints. - Minimal serosanguineous fluid output from the Juan-Pendleton drain - Denies any nausea or vomiting and is tolerating a diet. - Expresses a desire to be discharged home. abdomen soft non distended , appropriately tender wounds clean dry and intact Plan: ok to discharge per surgery point of view ok to shower in 48 hours follow up in surgery clinic in 1 week empty JESUS drain daily record output Discussed with Dr. Nassar Plan discussed with patient , Dr. Nassar Visit Coding Surgery Date of Service if different f: Jun 04, 2025 Billing Provider: MEENA NASSAR MD Surgery Visit Codes: [id number] INP/OBS CARE(HIGH) CHELSEY HERNANDEZ NP Jun 04, 2025 12:14
[2025-06-04 12:48] VITALS: TEMP 36.6
[2025-06-04 12:54] VITALS: BP 135/89; PULSE 80; RESP 18; TEMP 97.8; O2SAT 97
== END 2025-06-04 14:30 | disposition home or self-care (01) | DRG 263 ==
LOC: ER 09:38 → OVERFLOW 17:24 → CENTRAL 23:14
PROVIDERS: ADMIT Internal Medicine; ATTEND Internal Medicine
PROC: 0FT44ZZ Resection of Gallbladder, Percutaneous Endoscopic Approach (ICD-10-PCS; principal; 2025-06-02 07:25)
DX: K80.00 Calculus of gallbladder with acute cholecystitis without obstruction (principal); D72.829 Elevated white blood cell count, unspecified; E66.01 Morbid (severe) obesity due to excess calories; Z87.891 Personal history of nicotine dependence; Z68.39 Body mass index [BMI] 39.0-39.9, adult
CPT/HCPCS: 36415; 74176; 76705; 78226; 80048; 80053; 82247; 83690; 85025; 85610; 85730; 86803; 86850; 86900; 86901; 87070; 87075; 87205; 87340; 96361; 96365; 96368; 96375; G0378; J0131; J1100; J1885; J2003; J2250; J2405; J2470; J2704; J3490

== ENCOUNTER 2025-06-28 13:36 | Emergency (ER) | payer MEDICAID ==
[~2025-06-28] VITALS: Ht 182.9 cm; Wt 137.2 kg
[~2025-06-28 13:36] MED LIST: HYDR-4902 PO; LEVO500T91 PO; MET500T PO
--- NOTE | 2025-06-28 14:06 | ED.PDOC ---
History of Present Illness HPI Comments 34 y.o male presents to the ED for a chief complaint of flu like symptoms that include congestion, generalized headache, sweats, chills, and fever x today. Patient brought daughter in earlier today for same symptoms, had all viral infections r/o and discharged. He reports everything started after retuning home . He denies any chest pain, SOB, leg swelling. He denies any medical history Chief Complaint: Flu like Time Seen by MD: 14:00 Reviewed Notes: Nurses Notes, Medications, Allergies Allergies: Coded Allergies: NO KNOWN ALLERGIES (Unverified , 05/30/25) Home Meds Active Scripts Azithromycin (Zithromax) 1 Gm Pow, 1 PACK PO ONCE, #1 PACK Prov:MAYURI MATOS MD 06/28/25 Levofloxacin Hemihydrate (LEVAQUIN 500 MG) 500 Mg Tab, 1 TAB PO DAILY, #7 TAB Prov:WARREN RAMIREZ MD 06/04/25 Metronidazole (Metronidazole) 500 Mg Tab, 500 MG PO TID, #21 TAB Prov:WARREN RAMIREZ MD 06/04/25 Hydrocodone-Acetaminophen (Hydrocodone Bitartrate/AC 5-325 mg) 1 Tab Tab, 1 TAB PO Q4HP PRN, #20 TAB Prov:WARREN RAMIREZ MD 06/04/25 Information Source: Patient Mode of Arrival: Ambulatory Severity: Moderate Timing: Hours Duration: Since onset Past Medical History PAST MEDICAL HISTORY: Denies Surgical History: Cholecystectomy Family History Family History: Unknown Social History Smoker: Non-Smoker Alcohol: Denies ETOH Use Drugs: Marijuana Lives In: Home Constitutional: reports: chills, fever, sweats; denies: diaphoresis, fatigue, malaise, weakness, others EENTM: reports: nose congestion; denies: blurred vision, double vision, ear bleeding, ear discharge, ear drainage, ear pain, ear ringing, eye pain, eye redness, hearing loss, mouth pain, mouth swelling, nasal discharge, nose bleeding, nose pain, photophobia, tearing, throat pain, throat swelling, voice changes, others Respiratory: denies: cough, hemoptysis, orthopnea, SOB at rest, shortness of breath, SOB with excertion, stridor, wheezing, others Cardiovascular: denies: chest pain, dizzy spells, diaphoresis, Dyspnea on exertion, edema, irregular heart beat, left arm pain, lightheadedness, palpitations, PND, syncope, others Gastrointestinal: denies: abdomen distended, abdominal pain, blood streaked bowels, constipated, diarrhea, dysphagia, difficulty swallowing, hematemesis, melena, nausea, poor appetite, poor fluid intake, rectal bleeding, rectal pain, vomiting, others Genitourinary: denies: burning, dysuria, flank pain, frequency, hematuria, incontinence, penile discharge, penile sore, pain, testicle pain, testicle swelling, urgency, others Neurological: reports: headache; denies: dizziness, fainting, left sided numbness, left sided weakness, numbness, paresthesia, pre-existing deficit, right sided numbness, right sided weakness, seizure, speech problems, tingling, tremors, weakness, others Musculoskeletal: denies: back pain, gout, joint pain, joint swelling, muscle pain, muscle stiffness, neck pain, others Integumetry: denies: bruises, change in color, change in hair/nails, dryness, laceration, lesions, lumps, rash, wounds, others Allergic/Immunocompromised: denies: Difficulty Healing, Frequent Infections, Hives, Itching, others Hematologic/Lymphatic: denies: anemia, blood clots, easy bleeding, easy bru ising, swollen glands, others Endocrine: denies: excessive hunger, excessive sweating, excessive thirst, e xcessive urination, flushing, intolerance to cold, intolerance to heat, unexplained weight gain, unexplained weight loss, others Psychiatric: denies: anxiety, bipolar disorder, depression, hopeless, panic disorder, schizophrenia, sleepless, suicidal, others All Other Systems: Reviewed and Negative Physical Exam General Appearance: Obese HEENT: Normal ENT Inspection, Pharynx Normal, TMs Normal, Other (Tenderness to the maxillary area) Neck: Full Range of Motion, Non-Tender, Normal, Normal Inspection Respiratory: Chest Non-Tender, Lungs Clear, No Accessory Muscle Use, No Respiratory Distress, Normal Breath Sounds Cardiovascular: No Edema, No JVD, No Murmur, No Gallop, Normal Peripheral Pulses, Regular Rate/Rhythm Breast Exam: Deferred Gastrointestinal: No Organomegaly, Non Tender, No Pulsatile Mass, Normal Bowel Sounds, Soft Genitalia: Deferred Pelvic: Deferred Rectal: Deferred Extremities: No calf tenderness, Normal capillary refill, Normal inspection, Normal range of motion, Non-tender, No pedal edema Musculoskeletal : Apperance: Normal Neurologic: Alert, septic tank cleaner II-XII nml as Tested, No Motor Deficits, Normal Affect, Normal Mood, No Sensory Deficits Cerebellar Function: Normal Reflexes: Normal Skin: Dry, Normal Color, Warm Lymphatic: No Adenopathy Was a procedure done? Was a procedure done?: No Differential Dx Considerations may include: Dehydration, Viral syndrome, Electrolyte imbalance X-Ray, Labs, Meds, VS Vital Signs Date Time Temp Pulse Resp B/P (MAP) Pulse Ox O2 Delivery O2 Flow Rate FiO2 06/28/25 13:39 98.6 142 18 143/50 98 98.6 The patient is being discharged on Zithromax The patient will return to the emergency department's condition worsens The patient understands and agrees with the management. Time of 1ST Reevaluation: 14:03 Reevaluation 1ST: Unchanged Patient Education/Counseling: Diagnosis, Treatment, Prognosis, Need For Follow Up Family Education/Counseling: No Family Present SEPSIS Sepsis Screen Date sepsis recognized/suspect: Jun 28, 2025 Time Sepsis recognized/suspect: 1341 Recent Procedure: Yes On Antibiotic Therapy: No Respiratory Rate >20: No Heart Rate >90: Yes Temp<36 C (96.8 F) or >38.3 C: No SBP <90 or MAP <65 mmHG: No New Acute Mental Status Change: No Is the patient on CPAP, BIPAP,: No Vital Signs Date Time Temp Pulse Resp B/P (MAP) Pulse Ox O2 Delivery O2 Flow Rate FiO2 06/28/25 13:39 98.6 142 18 143/50 98 98.6 Departure 1 Departure Time of Disposition: 14:18 Impression: Primary Impression: Sinusitis Qualified Codes: J01.90 - Acute sinusitis, unspecified Disposition: HOME / SELF CARE / HOMELESS Condition: Fair e-Prescriptions Azithromycin (Zithromax) 1 Gm Pow 1 PACK PO ONCE, #1 PACK Prov: MAYURI MATOS MD 06/28/25 Discharged With: Self Critical Care Note Critical Care Time?: No Stability Stability form required: No I personally scribed for MAYURI MATOS MD ([email or web address]) on 06/28/25 at 14:06. Meli ctronically submitted by Ebonie Manning ([facility]). MAYURI MATOS MD Jun 28, 2025 14:06
[2025-06-28] MEDS ORDERED: AZIT1POW PO (14:08)
[2025-06-28 15:19] VITALS: BP 101/57; PULSE 111; RESP 19; TEMP 98.9; O2SAT 100
== END 2025-06-28 15:20 | disposition home or self-care (01) ==
LOC: ER 13:36
DX: J01.90 Acute sinusitis, unspecified (principal); Z90.49 Acquired absence of other specified parts of digestive tract